=== PATIENT | male | born 1980 | race Caucasian/White ===

== ENCOUNTER 2016-09-25 16:40 | Emergency (ER) | payer SELFPAY ==
--- NOTE | 2016-09-25 16:50 | ED.PDOC ---
History of Present Illness - General Chief Complaint: Upper Extremity Injury Stated Complaint: Right hand pain Time Seen by Provider: 09/25/16 16:45 Source: patient, RN notes reviewed, Vital Signs reviewed Exam Limitations: no limitations - History of Present Illness Initial Comments: Patient reports that around noon today he tripped over a cushion on the floor and fell. When he fell he landed on the back of his right hand. He had some pain so he took ibuprofen and took a nap. When he woke up the pain was worse and he can't grasp anything without having pain. no numbness or tingling. Good movement of hand just can't grab or pick any thing up. Occurred: this afternoon Pain - Upper Extremity: moderate: Hand, right - Back of hand over 3-5th metacarpals Method of Injury: fell Improving Factors: medication - ibuprofen, rest Worsening Factors: movement Home Medications: Ambulatory Orders NK [NK] 09/25/16 Review of Systems - Review of Systems Constitutional: States: no symptoms reported Respiratory: States: no symptoms reported Cardiology: States: no symptoms reported Gastrointestinal/Abdominal: States: no symptoms reported Musculoskeletal: States: see HPI, joint pain Skin: States: no symptoms reported Neurological: States: no symptoms reported. Denies: numbness, paresthesia, tingling, weakness Endocrine: States: no symptoms reported Family Medical History - Family History Father Family History: Unknown Physical Exam - Physical Exam General Appearance: Alert, Comfortable, No apparent distress, Well Developed, Well Groomed, Well Hydrated, Well Nourished Cardiovascular/Respiratory: normal peripheral pulses - 2+ radial pulses Shoulder Exam: normal inspection, non-tender, no evidence of injury, normal ROM Elbow/Forearm Exam: normal inspection, non-tender, no evidence of injury, normal ROM Wrist Exam: normal inspection, non-tender, no evidence of injury, normal ROM Hand Exam: normal ROM, bone tenderness - over 4th & 5th metacarpals, soft tissue tenderness, swelling Neuro/Tendon: normal sensation, normal motor functions, normal tendon functions Mental Status: alert, oriented x 3 Skin Exam: normal color, warm/dry Progress - EKG/XRAY/CT XRAY: hand - Normal/ no fracture Departure - Departure Clinical Impression: Hand sprain and strain Hand contusion Qualifiers: Encounter type: initial encounter Laterality: right Qualifier Code: (S60.221A) Contusion of right hand, initial encounter Time of Disposition: 17:16 Disposition: Discharge to Home or Self Care Condition: Good Departure Forms: ED Discharge - Pt. Copy, Patient Portal Self Enrollment Instructions: Sprain, Contusion Diet: resume usual diet Activity: increase activity as tolerated Home Medications: Ambulatory Orders NK [NK] 09/25/16
[2016-09-25 17:02] VITALS: BP 147/103; TEMP 97.3; O2SAT 100
--- NOTE | 2016-09-25 17:14 | RAD ---
EXAM DESCRIPTION: Hand,Right 3 Views CLINICAL HISTORY: pain s/p fall pain of the fifth metacarpal. COMPARISON: None. TECHNIQUE: 3 views FINDINGS: I see no bone joint or soft tissue abnormality. IMPRESSION: Normal right hand. Electronically signed by: Edgar Good MD 09/25/2016 5:13 PM CDT
== END 2016-09-25 17:35 | disposition home or self-care (01) ==
LOC: ER 16:40
DX: S60.221A Contusion of right hand, initial encounter (principal); S63.91XA Sprain of unspecified part of right wrist and hand, initial encounter; W01.0XXA Fall on same level from slipping, tripping and stumbling without subsequent striking against object, initial encounter